=== PATIENT | male | born 1950 | race Caucasian/White ===

== ENCOUNTER → 2019-06-27 06:00 | Outpatient (REF) | payer MEDICARE, SELFPAY | LOC: ANHLAB 06:00 | PROVIDERS: Visit Provider Nurse Practitioner | DX: C44.319 Basal cell carcinoma of skin of other parts of face (principal) | CPT/HCPCS: 88305; 88331 ==

== ENCOUNTER → 2020-02-13 10:11 | Outpatient (REF) | payer MEDICARE, SELFPAY | LOC: ANHLAB 10:11 | PROVIDERS: Visit Provider Nurse Practitioner | DX: C44.01 Basal cell carcinoma of skin of lip (principal) | CPT/HCPCS: 88305; 88331 ==

== ENCOUNTER → 2020-04-16 07:33 | Outpatient (REF) | payer MEDICARE, SELFPAY | LOC: ANHLAB 07:33 | PROVIDERS: Visit Provider Nurse Practitioner | DX: C44.311 Basal cell carcinoma of skin of nose (principal); C44.319 Basal cell carcinoma of skin of other parts of face | CPT/HCPCS: 88305; 88331 ==

== ENCOUNTER → 2021-01-28 08:53 | Outpatient (REF) | payer MEDICARE, SELFPAY | LOC: ANHLAB 08:53 | PROVIDERS: Visit Provider Nurse Practitioner | DX: C44.311 Basal cell carcinoma of skin of nose (principal) | CPT/HCPCS: 88305; 88331 ==

== ENCOUNTER → 2021-10-07 08:07 | Outpatient (REF) | payer MEDICARE, SELFPAY | LOC: ANHLAB 08:07 | PROVIDERS: Visit Provider Nurse Practitioner | DX: C44.311 Basal cell carcinoma of skin of nose (principal) | CPT/HCPCS: 88305; 88331 ==

== ENCOUNTER → 2022-02-17 08:14 | Outpatient (REF) | payer MEDICARE, SELFPAY | LOC: ANHLAB 08:14 | PROVIDERS: Visit Provider Nurse Practitioner | DX: C44.319 Basal cell carcinoma of skin of other parts of face (principal); C44.01 Basal cell carcinoma of skin of lip | CPT/HCPCS: 88305; 88331 ==

== ENCOUNTER → 2022-02-24 07:33 | Outpatient (REF) | payer MEDICARE, SELFPAY | LOC: ANHLAB 07:33 | PROVIDERS: Visit Provider Nurse Practitioner | DX: C44.319 Basal cell carcinoma of skin of other parts of face (principal) | CPT/HCPCS: 88305; 88331 ==

== ENCOUNTER 2022-04-21 16:36 | Outpatient (NON) | payer MEDICARE, SELFPAY | END 2022-04-21 16:37 | disposition home or self-care (01) | LOC: ANHLAB 16:36 | PROVIDERS: Visit Provider Nurse Practitioner | DX: C44.91 Basal cell carcinoma of skin, unspecified (principal) | CPT/HCPCS: 88305; 88331 ==

== ENCOUNTER 2022-06-02 15:00 | Outpatient (NON) | payer MEDICARE, SELFPAY | END 2022-06-02 15:01 | disposition home or self-care (01) | LOC: ANHLAB 15:01 | PROVIDERS: Visit Provider Nurse Practitioner | DX: C44.311 Basal cell carcinoma of skin of nose (principal) | CPT/HCPCS: 88305; 88331 ==

== ENCOUNTER 2022-11-03 14:02 | Outpatient (NON) | payer MEDICARE, SELFPAY | END 2022-11-03 14:03 | disposition home or self-care (01) | LOC: ANHLAB 14:03 | PROVIDERS: Visit Provider Nurse Practitioner | DX: C44.319 Basal cell carcinoma of skin of other parts of face (principal) | CPT/HCPCS: 88305; 88331 ==

== ENCOUNTER 2023-06-01 15:01 | Outpatient (NON) | payer MEDICARE, SELFPAY | END 2023-06-01 15:02 | disposition home or self-care (01) | LOC: ANHLAB 15:02 | PROVIDERS: Visit Provider Nurse Practitioner | DX: C44.91 Basal cell carcinoma of skin, unspecified (principal) | CPT/HCPCS: 88305; 88331 ==